=== PATIENT | female | born 1975 | race African-American/Black ===

== ENCOUNTER 2017-11-29 05:00 | Emergency (ER) | payer OTHER ==
[2017-11-29 05:21] LABS: Urine Blood NEGATIVE (NEG); Urine Glucose NEGATIVE (NEG); Urine Protein NEGATIVE (NEG); Urine Specific Gravity 1.025 (1.005-1.030)
[2017-11-29 05:57] LABS: Absolute Lymphocytes (CBC) 2.6 K/uL (0.7-4.9); Absolute Monocytes 0.6 K/uL (0.1-1.3); Absolute Neutrophil 7.3 K/uL (1.8-8.0); Albumin 3.3 g/dL (3.4-5.0); Basophils % 0.3 % (0-1.3); Bilirubin Direct 0.1 mg/dL (0-0.2); Bilirubin Total 0.3 mg/dL (0.2-1.0); Eosinophils % 0.8 % (0-4.4); Hematocrit 31.5 % (36.0-45.0); Lymphocytes % 24.5 % (15.3-44.8); MCH 27.7 pg (27.0-35.0); MCV 80.8 fL (80-100); MPV 8.1 fL (7.6-11.3); Monocytes % 5.6 % (3.3-12.3); Potassium 3.7 mmol/L (3.5-5.1); Protein, Total 7.8 g/dL (6.4-8.2)
--- NOTE | 2017-11-29 06:55 | ER ---
Nurse's Notes [facility] Name: Vicky Klein Age: 42 yrs Sex: Female : 1975 Arrival Date: 11/29/2017 Time: 05:03 Bed 13 Private MD: Telma Wall Diagnosis: Calculus of kidney and ureter Presentation: 11/29 05:21 Presenting complaint: Patient states: R flank pain x 3 days. Denies N/V or urinary aa1 symptoms. Reports normal u/a yesterday. States her PCP believes it could be related to stress or a new weight loss medication she has been taking. Transition of care: patient was not received from another setting of care. Onset of symptoms was November 27, 2017. Risk Assessment: Do you want to hurt yourself or someone else? Patient reports no desire to harm self or others. Initial Sepsis Screen: Does the patient meet any 2 criteria? HR > 90 bpm. Does the patient have a suspected source of infection? No. Patient's initial sepsis screen is negative. Care prior to arrival: None. 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 - Social history:: Smoking status: Patient/guardian denies using tobacco. - Ebola Screening: : No symptoms or risks identified at this time. Screenin:28 Abuse screen: Denies threats or abuse. Denies injuries from another. Nutritional aa1 screening: No deficits noted. Tuberculosis screening: No symptoms or risk factors identified. Fall Risk None identified. Assessment: 05:28 General: Appears in no apparent distress. comfortable, Behavior is calm, cooperative, aa1 appropriate for age. Pain: Complains of pain in posterior aspect of right lateral abdomen and anterior aspect of right lateral abdomen Pain currently is 5 out of 10 on a pain scale. Pain began 2-3 days ago. Neuro: Level of Consciousness is awake, alert, obeys commands, Oriented to person, place, time, situation, Moves all extremities. Full function Gait is steady. Cardiovascular: Denies chest pain, palpitations. Respiratory: Airway is patent Respiratory effort is even, unlabored, Respiratory pattern is regular, symmetrical. GI: Abdomen is non-distended, Abd is soft and non tender X 4 quads. Patient currently denies constipation, diarrhea, nausea, vomiting. : Reports pain in right flank(s), Denies burning with urination, pain with urination urinary frequency. EENT: No signs and/or symptoms were reported regarding the EENT system. Derm: Skin is intact, is healthy with good turgor, Skin is pink, warm \T\ dry. Musculoskeletal: Circulation, motion, and sensation intact. Capillary refill < 3 seconds. 06:16 Reassessment: Patient appears in no apparent distress at this time. Patient and/or aa1 family updated on plan of care and expected duration. Pain level reassessed. Patient is alert, oriented x 3, equal unlabored respirations, skin warm/dry/pink. Awaiting lab \T\ CT results. 07:07 Reassessment: Patient appears in no apparent distress at this time. Patient is alert, aa1 oriented x 3, equal unlabored respirations, skin warm/dry/pink. Discussed d/c \T\ f/u instructions with pt; denies questions or concerns at this time Patient states feeling better. Vital Signs: 05:23 BP 133 / 81; Pulse 113; Resp 18; Temp 98.7; Pulse Ox 100% on R/A; Weight 95.71 kg; aa1 Height 5 ft. 7 in. (170.18 cm); Pain 5/10; 06:16 BP 123 / 75; Pulse 86; Resp 16; Pulse Ox 95% on R/A; aa1 05:23 Body Mass Index 33.05 (95.71 kg, 170.18 cm) aa1 ED Course: 05:03 Patient arrived in ED. am2 05:03 Telma Wall MD is Private Physician. am2 05:09 Missy Martin, RAVEN is Primary Nurse. aa1 05:10 Hilario Lee MD is Attending Physician. gs 05:23 Triage completed. aa1 05:23 Arm band placed on right wrist. Patient placed in an exam room, on a stretcher. aa1 05:28 Patient has correct armband on for positive identification. Placed in gown. Bed in low aa1 position. Call light in reach. Pulse ox on. NIBP on. 05:28 Urine collected: clean catch specimen. aa1 05:34 Inserted saline lock: 20 gauge in right antecubital area, using aseptic technique. ao Blood collected. 05:36 Patient moved to [place] via wheelchair. kw1 05:45 CT Stone Protocol In Process Unspecified. EDMS 05:47 CT completed. Patient tolerated procedure well. Patient moved back from [place]. kw1 06:54 Rocky Ivey MD is Referral Physician. gs 07:07 No provider procedures requiring assistance completed. IV discontinued, intact, aa1 bleeding controlled, No redness/swelling at site. Pressure dressing applied. Administered Medications: No medications were administered Outcome: 06:54 Discharge ordered by . gs 07:07 Discharged to home ambulatory. aa1 07:07 Condition: good 07:07 Discharge instructions given to patient, Instructed on discharge instructions, follow up and referral plans. medication usage, Demonstrated understanding of instructions, follow-up care, medications. 07:08 Patient left the ED. aa1 Signatures: Dispatcher [employer] EDMS Missy Martin RN RN aa1 Hilton Aguero RN RN Lizabeth Villalobos am2 Hilario Lee MD MD Rashida Palma kw1
--- NOTE | 2017-11-29 06:55 | EDPHYS ---
Physician Documentation [facility] Name: Vicky Klein Age: 42 yrs Sex: Female : 1975 Arrival Date: 11/29/2017 Time: 05:03 Bed 13 Private MD: Telma Wall ED Physician Hilario Lee HPI: 11/29 06:15 This 42 yrs old Black Female presents to ER via Ambulatory with complaints of Flank gs Pain. 06:15 The patient complains of pain in the right mid back and right low back. The pain gs radiates to the right lower quadrant. Onset: The symptoms/episode began/occurred acutely, 3 day(s) ago, and became persistent. Modifying factors: The symptoms are alleviated by nothing. the symptoms are aggravated by nothing. Associated signs and symptoms: Pertinent negatives: diarrhea, dizziness, dysuria, fever, urinary frequency, headache, hematuria, nausea, pain radiating to the lower extremities, vomiting. Severity of pain: At its worst the pain was moderate in the emergency department the pain has improved markedly. The patient has experienced similar episodes in the past, a few times. The patient has been recently seen by a physician: the patient's primary care provider. 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 - Social history:: Smoking status: Patient/guardian denies using tobacco. - Ebola Screening: : No symptoms or risks identified at this time. ROS: 06:15 All other systems are negative. gs Exam: 06:15 Head/Face: Normocephalic, atraumatic. Eyes: Pupils equal round and reactive to light, gs extra-ocular motions intact. Lids and lashes normal. Conjunctiva and sclera are non-icteric and not injected. Cornea within normal limits. Periorbital areas with no swelling, redness, or edema. ENT: Nares patent. No nasal discharge, no septal abnormalities noted. Tympanic membranes are normal and external auditory canals are clear. Oropharynx with no redness, swelling, or masses, exudates, or evidence of obstruction, uvula midline. Mucous membranes moist. Neck: Trachea midline, no thyromegaly or masses palpated, and no cervical lymphadenopathy. Supple, full range of motion without nuchal rigidity, or vertebral point tenderness. No Meningismus. Chest/axilla: Normal chest wall appearance and motion. Nontender with no deformity. No lesions are appreciated. Cardiovascular: Regular rate and rhythm with a normal S1 and S2. No gallops, murmurs, or rubs. Normal PMI, no JVD. No pulse deficits. Respiratory: Lungs have equal breath sounds bilaterally, clear to auscultation and percussion. No rales, rhonchi or wheezes noted. No increased work of breathing, no retractions or nasal flaring. Abdomen/GI: Soft, non-tender, with normal bowel sounds. No distension or tympany. No guarding or rebound. No evidence of tenderness throughout. Back: No spinal tenderness. No costovertebral tenderness. Full range of motion. Skin: Warm, dry with normal turgor. Normal color with no rashes, no lesions, and no evidence of cellulitis. MS/ Extremity: Pulses equal, no cyanosis. Neurovascular intact. Full, normal range of motion. Neuro: Awake and alert, GCS 15, oriented to person, place, time, and situation. Cranial nerves II-XII grossly intact. Motor strength 5/5 in all extremities. Sensory grossly intact. Cerebellar exam normal. Normal gait. 06:15 Constitutional: The patient appears alert, awake. Vital Signs: 05:23 BP 133 / 81; Pulse 113; Resp 18; Temp 98.7; Pulse Ox 100% on R/A; Weight 95.71 kg; aa1 Height 5 ft. 7 in. (170.18 cm); Pain 5/10; 06:16 BP 123 / 75; Pulse 86; Resp 16; Pulse Ox 95% on R/A; aa1 05:23 Body Mass Index 33.05 (95.71 kg, 170.18 cm) aa1 MDM: 05:18 Patient medically screened. 06:15 Differential diagnosis: nephrolithiasis, UTI, pancreatitis. Data reviewed: vital signs, gs nurses notes. Counseling: I had a detailed discussion with the patient and/or guardian regarding: the historical points, exam findings, and any diagnostic results supporting the discharge/admit diagnosis, lab results, radiology results. Response to treatment: the patient's symptoms have markedly improved after treatment, and as a result, I will discharge patient. 11/29 05:18 Order name: Urine Dipstick--Ancillary (enter results); Complete Time: 06:14 ms 11/29 05:18 Order name: Urine --Ancillary (enter results); Complete Time: 06:14 ms 11/29 05:18 Order name: Basic Metabolic Panel; Complete Time: 06:14 11/29 05:18 Order name: CBC with Diff; Complete Time: 06:14 11/29 05:18 Order name: Hepatic Function; Complete Time: 06:14 11/29 05:18 Order name: Lipase; Complete Time: 06: 11/29 05:18 Order name: IV Saline Lock; Complete Time: :34 11/29 05:18 Order name: Labs collected and sent; Complete Time: 05:34 11/29 05:18 Order name: Urine Dipstick-Ancillary (obtain specimen); Complete Time: : 11/29 05:18 Order name: CT Stone Protocol Administered Medications: No medications were administered Disposition: 11/29/17 06:54 Discharged to Home. Impression: Calculus of kidney and ureter. - Condition is Stable. - Discharge Instructions: Kidney Stones. - Medication Reconciliation Form, Thank You Letter, Antibiotic Education, Prescription Opioid Use form. - Follow up: Rocky Ivey; When: 2 - 3 days; Reason: Re-evaluation by your physician. Signatures: Dispatcher [facility] CenterMissy Bingham RN RN aa1 Hilario Lee MD MD Corrections: (The following items were deleted from the chart) 07:08 06:54 11/29/2017 06:54 Discharged to Home. Impression: Calculus of kidney and ureter. aa1 Condition is Stable. Discharge Instructions: Kidney Stones. Forms are Medication Reconciliation Form, Thank You Letter, Antibiotic Education, Prescription Opioid Use. Follow up: Rocky Ivey; When: 2 - 3 days; Reason: Re-evaluation by your physician. gs
--- NOTE | 2017-11-29 08:52 | RAD REPORT ---
EXAM DESCRIPTION: CT - Stone Protocol - 11/29/2017 7:15 am CLINICAL HISTORY: Abdominal pain. Right flank pain for 3 days COMPARISON: 2014 TECHNIQUE: Computed axial tomography of the abdomen pelvis was obtained without oral or IV contrast. Lack of IV and oral contrast limits evaluation of solid organs, bowel, and vessels. Coronal reformat radha images were obtained and reviewed. Preliminary report was generated by virtual radiologic in review prior to this dictation All CT scans are performed using dose optimization technique as appropriate and may include automated exposure control or mA/KV adjustment according to patient size. FINDINGS: A 3 millimeter right renal calculus is seen. Hydronephrosis is not noted. An ureteral calc ulus is not noted. A bladder calculus is not present. The liver, spleen, pancreas and adrenals appear grossly normal There is no evidence of diverticulitis. The appendix appears normal Small ovarian cysts are present without significant free-fluid A tiny umbilical hernia is present IMPRESSION: Small nonobstructing right renal calculus
== END 2017-11-29 07:08 | disposition home or self-care (01) ==
LOC: ER 05:00
DX: N20.2 Calculus of kidney with calculus of ureter (principal)
CPT/HCPCS: 36415; 74176; 76377; 80048; 80076; 81003; 81025; 83690; 85025; 99284

== ENCOUNTER 2019-08-12 08:14 | Emergency (ER) | payer OTHER ==
[2019-08-12] MEDS ORDERED: NA CHLORIDE 0.9% 500 ML ONE (09:29)
[2019-08-12] MEDS ORDERED: MORPHINE 4 MG/ML SYR ONE ×2 (09:29→11:35)
[2019-08-12] MEDS ORDERED: ONDANSETRON 4 MG/2 ML VIAL ONE ×2 (09:29→11:35)
[2019-08-12] MEDS ORDERED: FAMOTIDINE 20 MG/2 ML VIAL IV ONE (09:29)
[2019-08-12 09:41] LABS: Basophils % 0.4 % (0-1.3); Hematocrit 35.8 % (36.0-45.0); Lymphocytes % 16.6 % (15.3-44.8); MPV 7.7 fL (7.6-11.3); RBC Red Blood Cell Count 4.46 M/uL (3.86-4.86)
[2019-08-12 09:56] LABS: ALT/SGPT 12 U/L (12-78); AST/SGOT 7 U/L (15-37); Albumin 3.2 g/dL (3.4-5.0); Alkaline Phosphatase 60 U/L (45-117); BUN Blood Urea Nitrogen 14 mg/dL (7-18); Bicarbonate 26 mmol/L (21-32); Bilirubin Direct < 0.1 mg/dL (0-0.2); Bilirubin Total 0.3 mg/dL (0.2-1.0); Glucose Level 128 mg/dL (74-106); Lipase 88 U/L (73-393); Potassium 4.3 mmol/L (3.5-5.1); Protein, Total 7.6 g/dL (6.4-8.2); Sodium Level 136 mmol/L (136-145)
--- NOTE | 2019-08-12 10:23 | RAD REPORT ---
EXAM DESCRIPTION: CT - Abdomen Pelvis W Contrast - 08/12/2019 9:53 am CLINICAL HISTORY: Abdominal pain COMPARISON: 2017 TECHNIQUE: Computed axial tomography of the abdomen pelvis was obtained. 100 cc Isovue-300 was admin istered intravenously. Oral contrast was not requested which limits evaluation of bowel. All CT scans are performed using dose optimization technique as appropriate and may include automated exposure control or mA/KV adjustment according to patient size. FINDINGS: A 3 millimeter calculus right kidney. No hydronephrosis. Small renal cysts. The liver, spleen, pancreas and adrenals are unremarkable There is no evidence of diverticulitis. Normal appendix. Tubal ligation clips Small amount of ascites within the abdomen. Small to moderate amount of ascites within the pelvis . 24 millimeter dense structure abuts the right aspect of the uterus The wall of several loops of jejunum are thickened IMPRESSION: A 24 millimeter dense structure abuts the right aspect of the uterus. This may represent a hemorrhagic ovarian cyst or fibroid. Small to moderate amount of ascites within the pelvis. Thickening of the wall of several loops of jejunum could indicate inflammation or infection
[2019-08-12] MEDS ORDERED: CIPROFLOXACIN HCL 500 MG TAB ONE (11:34)
[2019-08-12] MEDS ORDERED: metroNIDAZOLE 500 MG TABLET ONE (11:34)
--- NOTE | 2019-08-12 15:10 | RAD REPORT ---
EXAM DESCRIPTION: RAD - Small Bowel Series - 08/12/2019 2:38 pm CLINICAL HISTORY: abd pain COMPARISON: Abdomen Pelvis W Contrast dated 08/12/2019 FINDINGS: Dependency Director film shows a nonspecific bowel gas pattern. No obstruction or free air. No suspiciou s calcifications. Contrast is present in the system from earlier CT study. Gastric size and mucosal fold pattern are normal. No delay in transit of contrast into the small mikey l. The mid and distal portions of the jejunum show mucosal thickening and edema. This circumferential process matches the finding on the CT study. This is most likely an infectious/ inflammatory small b owel process. No involvement of the duodenum or ileum. No delay in transit of contrast. The terminal ileum is normal in appearance. No intrinsic or extrinsic mass identifiable. Transit time to the colon is 2 hours. IMPRESSION: Circumferential mucosal thickening/ edema pattern involving the mid and distal jejunum. This matches the CT finding. Infectious/ inflammatory process most likely. No obstruction or transit delay. Contrast reached the colon at 2 hours.
[2019-08-12 15:39] VITALS: BP 126/78; TEMP 97.9; O2SAT 99
--- NOTE | 2019-08-16 15:51 | EDPHYS ---
Physician Documentation [facility] Name: Vicky Klein Age: 44 yrs Sex: Female : 1975 Arrival Date: 08/12/2019 Time: 08:16 Bed 2 Private MD: Telma Wall ED Physician Ladarius Rider HPI: 08/11 09:13 This 44 yrs old Black Female presents to ER via Ambulatory with complaints of Abdominal kdr Cramping. 09:13 The patient presents with abdominal pain in the epigastric area, in the upper abdomen. kdr Onset: The symptoms/episode began/occurred gradually, 3 day(s) ago. The symptoms do not radiate. The symptoms are described as achy, crampy, intermittent, vague, waxing/waning. Modifying factors: The symptoms are alleviated by nothing, the symptoms are aggravated by food, movement, touching the area. Severity of pain: At its worst the pain was moderate in the emergency department the pain has improved mildly. The patient has experienced similar episodes in the past, a few times, has hx of IBS. The patient has not recently seen a physician. 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 - Social history:: Smoking status: Patient denies any tobacco usage or history of. ROS: 09:13 Constitutional: Negative for fever, chills, and weight loss, Eyes: Negative for injury, kdr pain, redness, and discharge, ENT: Negative for injury, pain, and discharge, Neck: Negative for injury, pain, and swelling, Cardiovascular: Negative for chest pain, palpitations, and edema, Respiratory: Negative for shortness of breath, cough, wheezing, and pleuritic chest pain, Back: Negative for injury and pain, : Negative for injury, bleeding, discharge, and swelling, MS/Extremity: Negative for injury and deformity, Skin: Negative for injury, rash, and discoloration, Neuro: Negative for headache, weakness, numbness, tingling, and seizure activity. Psych: Negative for depression, anxiety, suicide ideation, homicidal ideation, and hallucinations, Allergy/Immunology: Negative for hives, rash, and allergies, Endocrine: Negative for neck swelling, polydipsia, polyuria, polyphagia, and marked weight changes, Hematologic/Lymphatic: Negative for swollen nodes, abnormal bleeding, and unusual bruising. 09:13 Abdomen/GI: Positive for abdominal pain, nausea, Negative for constipation, abdominal distension, anorexia, dysphagia, hematemesis, black/tarry stool, rectal pain, rectal bleeding, bowel incontinence. Exam: 09:13 Constitutional: This is a well developed, well nourished patient who is awake, alert, kdr and in no acute distress. Head/Face: Normocephalic, atraumatic. Eyes: Pupils equal round and reactive to light, extra-ocular motions intact. Lids and lashes normal. Conjunctiva and sclera are non-icteric and not injected. Cornea within normal limits. Periorbital areas with no swelling, redness, or edema. Neck: Trachea midline, no thyromegaly or masses palpated, and no cervical lymphadenopathy. Supple, full range of motion without nuchal rigidity, or vertebral point tenderness. No Meningismus. Chest/axilla: Normal chest wall appearance and motion. Nontender with no deformity. No lesions are appreciated. Cardiovascular: Regular rate and rhythm with a normal S1 and S2. No gallops, murmurs, or rubs. Normal PMI, no JVD. No pulse deficits. Respiratory: Lungs have equal breath sounds bilaterally, clear to auscultation and percussion. No rales, rhonchi or wheezes noted. No increased work of breathing, no retractions or nasal flaring. Back: No spinal tenderness. No costovertebral tenderness. Full range of motion. Skin: Warm, dry with normal turgor. Normal color with no rashes, no lesions, and no evidence of cellulitis. MS/ Extremity: Pulses equal, no cyanosis. Neurovascular intact. Full, normal range of motion. Neuro: Awake and alert, GCS 15, oriented to person, place, time, and situation. Cranial nerves II-XII grossly intact. Motor strength 5/5 in all extremities. Sensory grossly intact. Cerebellar exam normal. Normal gait. Psych: Awake, alert, with orientation to person, place and time. Behavior, mood, and affect are within normal limits. 09:13 Abdomen/GI: Inspection: abdomen appears normal, obese Bowel sounds: diminished, in all quadrants, Palpation: soft, mild abdominal tenderness, in the epigastric area, right upper quadrant and left upper quadrant. Vital Signs: 08:38 BP 134 / 94; Pulse 112; Resp 16; Temp 98.2; Pulse Ox 96% ; Weight 93.89 kg; Height 5 hb ft. 7 in. (170.18 cm); Pain 8/10; 08:47 BP 128 / 91; Pulse 96; Pulse Ox 96% ; sv 10:53 BP 120 / 71; Pulse 79; Resp 16; Pulse Ox 96% ; sv 11:39 BP 115 / 80; Pulse 93; Resp 16; Pulse Ox 98% ; sv 12:00 BP 124 / 79; Pulse 86; Resp 16; Pulse Ox 96% ; sv 15:00 BP 126 / 78; Pulse 84; Resp 16; Temp 97.9; Pulse Ox 99% ; hb 08:38 Body Mass Index 32.42 (93.89 kg, 170.18 cm) hb MDM: 09:13 Data reviewed: vital signs, nurses notes, lab test result(s), radiologic studies. kdr Counseling: I had a detailed discussion with the patient and/or guardian regarding: the historical points, exam findings, and any diagnostic results supporting the discharge/admit diagnosis, lab results, radiology results. 10:47 Physician consultation: Brandan Vines MD was called at 10:48, regarding consult, kdr patient's condition, outpatient follow-up. 14:44 Patient medically screened. [facility] 08/11 09:12 Order name: Basic Metabolic Panel; Complete Time: 10:37 [facility] 08/11 09:12 Order name: CBC with Diff; Complete Time: 09:55 [facility] 08/11 09:12 Order name: Hepatic Function; Complete Time: 10:37 [facility] 08/11 09:12 Order name: Lipase; Complete Time: 10:37 [facility] 08/11 09:12 Order name: CT Abd/Pelvis - IV Contrast Only; Complete Time: 10:37 [facility] 08/11 09:52 Order name: CREATININE WHOLE BLOOD; Complete Time: 09:55 [facility] 08/11 11:37 Order name: Small Bowel Series [facility] 08/11 09:12 Order name: IV Saline Lock; Complete Time: 09:37 [facility] 08/11 09:12 Order name: Labs collected and sent; Complete Time: 09:37 kdr Administered Medications: 09:30 Drug: NS 0.9% 500 ml Route: IV; Rate: bolus; Site: left antecubital; sv 10:00 Follow up: Response: No adverse reaction; IV Status: Completed infusion; IV Intake: sv 500ml 09:30 Drug: Zofran (Ondansetron) 4 mg Route: IVP; Site: left antecubital; sv 10:00 Follow up: Response: No adverse reaction sv 09:32 Drug: Pepcid 20 mg Route: IVP; Site: left antecubital; sv 10:00 Follow up: Response: No adverse reaction sv 09:34 Drug: morphine 4 mg {Note: rass1.} Route: IVP; Site: left antecubital; sv 10:00 Follow up: Response: No adverse reaction; RASS: Alert and Calm (0) sv 11:32 Drug: Zofran (Ondansetron) 4 mg Route: IVP; Site: left antecubital; em 12:00 Follow up: Response: No adverse reaction sv 11:34 Drug: Cipro 500 mg Route: PO; em 12:00 Follow up: Response: No adverse reaction sv 11:34 Drug: Flagyl 500 mg Route: PO; em 12:00 Follow up: Response: No adverse reaction sv 11:34 Drug: morphine 4 mg Route: IVP; Site: left antecubital; em 12:00 Follow up: Response: No adverse reaction sv Disposition: 08/12/19 14:44 Discharged to Home. Impression: Abdominal and pelvic pain, Enteritis. - Condition is Stable. - Discharge Instructions: Abdominal Pain, Adult, [id number]. - Prescriptions for Bentyl 20 mg Oral Tablet - take 1 tablet by ORAL route every 6 hours As needed; 20 tablet. Cipro 500 mg Oral Tablet - take 1 tablet by ORAL route every 12 hours for 10 days; 20 tablet. Flagyl 500 mg Oral Tablet - take 1 tablet by ORAL route every 6 hours for 10 days; 40 tablet. Pepcid 20 mg Oral Tablet - take 1 tablet by ORAL route every 12 hours for 5 days; 10 tablet. Tramadol 50 mg Oral Tablet - take 1 tablet by ORAL route every 8 hours as needed; 12 tablet. - Medication Reconciliation Form, Thank You Letter, Antibiotic Education, Prescription Opioid Use form. - Follow up: Telma Wall MD; When: 2 - 3 days; Reason: If symptoms return, Further diagnostic work-up, Recheck today's complaints, Continuance of care, Re-evaluation by your physician. Follow up: Brandan Vines MD; When: 2 - 3 days; Reason: If symptoms return, Further diagnostic work-up, Recheck today's complaints, Continuance of care, Re-evaluation by your physician. - Problem is an acute exacerbation. - Symptoms have improved. Signatures: Dispatcher [employer] Yuridia Tejada, RN RN Ladarius Rider MD MD [facility] Luis Felipe Perez RN RN em Roshni Manjarrez RN RN Frances Encinas RN RN ll1 Corrections: (The following items were deleted from the chart) 15:12 14:44 08/12/2019 14:44 Discharged to Home. Impression: Abdominal and pelvic pain; ll1 Enteritis. Condition is Stable. Forms are Medication Reconciliation Form, Thank You Letter, Antibiotic Education, Prescription Opioid Use. Follow up: Telma Wall; When: 2 - 3 days; Reason: If symptoms return, Further diagnostic work-up, Recheck today's complaints, Continuance of care, Re-evaluation by your physician. Follow up: Brandan Vines; When: 2 - 3 days; Reason: If symptoms return, Further diagnostic work-up, Recheck today's complaints, Continuance of care, Re-evaluation by your physician. Problem is an acute exacerbation. Symptoms have improved. kdr
--- NOTE | 2019-08-16 15:51 | ER ---
Nurse's Notes [facility] Name: Vicky Klein Age: 44 yrs Sex: Female : 1975 Arrival Date: 08/12/2019 Time: 08:16 Bed 2 Private MD: Telma Wall Diagnosis: Abdominal and pelvic pain;Enteritis Presentation: 08/11 08:38 Chief complaint: Left flank pain 3-4 days ago that has now moved to upper abdomen. Also hb c/o nausea. Denies urinary s/s or fever. Started on omeprazole and sucralfate by Dr. Wall yesterday. Coronavirus screen: Proceed with normal triage. Ebola Screen: No symptoms or risks identified at this time. Initial Sepsis Screen: Does the patient meet any 2 criteria? No. Patient's initial sepsis screen is negative. Does the patient have a suspected source of infection? No. Patient's initial sepsis screen is negative. Risk Assessment: Do you want to hurt yourself or someone else? Patient reports no desire to harm self or others. Onset of symptoms was August 08, 2019. 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 - Social history:: Smoking status: Patient denies any tobacco usage or history of. Screenin:25 Abuse screen: Denies threats or abuse. Denies injuries from another. Nutritional sv screening: No deficits noted. Tuberculosis screening: No symptoms or risk factors identified. Fall Risk None identified. Assessment: 09:25 General: Appears in no apparent distress. uncomfortable, well groomed, well developed, sv Behavior is calm, cooperative, appropriate for age. Pain: Complains of pain in epigastric area, posterior aspect of left lateral abdomen, right upper quadrant and left upper quadrant Pain currently is 8 out of 10 on a pain scale. Quality of pain is described as crampy, Pain began 1 day ago. Is continuous. Neuro: Level of Consciousness is awake, alert, obeys commands, Oriented to person, place, time, situation, Gait is steady, Speech is normal. Respiratory: Airway is patent Respiratory effort is even, unlabored, Respiratory pattern is regular, symmetrical. GI: Abdomen is flat, Abd is soft X 4 quads Abdomen is tender to palpation in epigastric area, right upper quadrant and left upper quadrant Reports upper abdominal pain. Derm: Skin is intact, Skin is pink, warm \T\ dry. 10:03 Reassessment: Patient appears in no apparent distress at this time. No changes from sv previously documented assessment. Patient and/or family updated on plan of care and expected duration. Pain level reassessed. Patient is alert, oriented x 3, equal unlabored respirations, skin warm/dry/pink. 12:45 Reassessment: Pt gone for small bowel series. sv 15:00 Reassessment: Patient appears in no apparent distress at this time. Patient and/or hb family updated on plan of care and expected duration. Pain level reassessed. Patient is alert, oriented x 3, equal unlabored respirations, skin warm/dry/pink. Vital Signs: 08:38 BP 134 / 94; Pulse 112; Resp 16; Temp 98.2; Pulse Ox 96% ; Weight 93.89 kg; Height 5 hb ft. 7 in. (170.18 cm); Pain 8/10; 08:47 BP 128 / 91; Pulse 96; Pulse Ox 96% ; sv 10:53 BP 120 / 71; Pulse 79; Resp 16; Pulse Ox 96% ; sv 11:39 BP 115 / 80; Pulse 93; Resp 16; Pulse Ox 98% ; sv 12:00 BP 124 / 79; Pulse 86; Resp 16; Pulse Ox 96% ; sv 15:00 BP 126 / 78; Pulse 84; Resp 16; Temp 97.9; Pulse Ox 99% ; hb 08:38 Body Mass Index 32.42 (93.89 kg, 170.18 cm) hb ED Course: 08:16 Patient arrived in ED. mr 08:16 Telma Wall MD is Private Physician. mr 08:40 Triage completed. hb 08:40 Arm band placed on. hb 08:46 Yuridia Retana RN is Primary Nurse. sv 08:47 Ladarius Rider MD is Attending Physician. kdr 09:25 Patient has correct armband on for positive identification. Placed in gown. Bed in low sv position. Call light in reach. Pulse ox on. NIBP on. Door closed. Head of bed elevated. 09:30 Inserted saline lock: 20 gauge in left antecubital area, using aseptic technique. Blood sv collected. Flushed left antecubital with 5 ml normal saline. 09:[address] via wheelchair. sv 09:53 CT Abd/Pelvis - IV Contrast Only In Process Unspecified. EDMS 11:39 Awaiting for x-ray. sv 14:39 Small Bowel Series In Process Unspecified. EDMS 14:43 Telma Wall MD is Referral Physician. kdr 14:43 Brandan Vines MD is Referral Physician. kdr 15:03 No provider procedures requiring assistance completed. IV discontinued, intact, hb bleeding controlled, No redness/swelling at site. Administered Medications: 09:30 Drug: NS 0.9% 500 ml Route: IV; Rate: bolus; Site: left antecubital; sv 10:00 Follow up: Response: No adverse reaction; IV Status: Completed infusion; IV Intake: sv 500ml 09:30 Drug: Zofran (Ondansetron) 4 mg Route: IVP; Site: left antecubital; sv 10:00 Follow up: Response: No adverse reaction sv 09:32 Drug: Pepcid 20 mg Route: IVP; Site: left antecubital; sv 10:00 Follow up: Response: No adverse reaction sv 09:34 Drug: morphine 4 mg {Note: rass1.} Route: IVP; Site: left antecubital; sv 10:00 Follow up: Response: No adverse reaction; RASS: Alert and Calm (0) sv 11:32 Drug: Zofran (Ondansetron) 4 mg Route: IVP; Site: left antecubital; em 12:00 Follow up: Response: No adverse reaction sv 11:34 Drug: Cipro 500 mg Route: PO; em 12:00 Follow up: Response: No adverse reaction sv 11:34 Drug: Flagyl 500 mg Route: PO; em 12:00 Follow up: Response: No adverse reaction sv 11:34 Drug: morphine 4 mg Route: IVP; Site: left antecubital; em 12:00 Follow up: Response: No adverse reaction sv Intake: 10:00 IV: 500ml; Total: 500ml. sv Outcome: 14:44 Discharge ordered by . abdullahi 15:03 Discharged to home ambulatory. hb 15:03 Condition: stable 15:03 Discharge instructions given to patient, Instructed on discharge instructions, follow up and referral plans. medication usage. 15:12 Patient left the ED. ll1 Signatures: Dispatcher [employer] Yuridia Tejada RN RN sv Rittger, Kevin, MD MD kdr Rivera, Mary mr Luis Felipe Perez RN RN em Baxter, Heather, RN RN hb Lewis, Lynsay, RN RN ll1
== END 2019-08-12 15:12 | disposition home or self-care (01) ==
LOC: ER 08:14
DX: K52.9 Noninfective gastroenteritis and colitis, unspecified (principal)
CPT/HCPCS: 85025; 80048; 36415; 82565; 80076; 83690; 74177; 74250; 96375; 96374; 99284; Q9967; J7040; J2405 ×2

== ENCOUNTER 2020-12-26 10:43 | Emergency (ER) | payer OTHER ==
[2020-12-26] MEDS ORDERED: METOCLOPRAMIDE 10 MG/2mL INJ ONE (11:28)
[2020-12-26] MEDS ORDERED: NA CHLORIDE 0.9% 1,000 ML ONE (11:28)
[2020-12-26] MEDS ORDERED: DIPHENHYDRAMINE 50 MG/ML VIAL ONE (11:28)
[2020-12-26 11:38] LABS: Absolute Lymphocytes (CBC) 2.8 K/uL (0.7-4.9); Basophils % 0.4 % (0-1.3); Hematocrit 33.8 % (36.0-45.0); Lymphocytes % 21.8 % (15.3-44.8); MPV 7.4 fL (7.6-11.3); RBC Red Blood Cell Count 4.04 M/uL (3.86-4.86)
[2020-12-26 12:06] LABS: ALT/SGPT 26 U/L (12-78); AST/SGOT 10 U/L (15-37); Albumin 3.6 g/dL (3.4-5.0); Alkaline Phosphatase 73 U/L (45-117); BUN Blood Urea Nitrogen 15 mg/dL (7-18); Bicarbonate 22 mmol/L (21-32); Bilirubin Direct < 0.1 mg/dL (0-0.2); Bilirubin Total 0.3 mg/dL (0.2-1.0); Glucose Level 92 mg/dL (74-106); Lipase 87 U/L (73-393); Potassium 3.8 mmol/L (3.5-5.1); Protein, Total 7.8 g/dL (6.4-8.2); Sodium Level 138 mmol/L (136-145)
--- NOTE | 2020-12-26 14:17 | EDPHYS ---
Physician Documentation [facility] Name: Vicky Klein Age: 45 yrs Sex: Female : 1975 Arrival Date: 12/26/2020 Time: 10:46 Bed 11 Private MD: Telma Wall ED Physician Ladarius Rider HPI: 12/26 10:51 This 45 yrs old Black Female presents to ER via Ambulatory with complaints of Abdominal jmm Pain. 10:51 The patient presents with abdominal pain. Onset: The symptoms/episode began/occurred jmm gradually, 2 day(s) ago. The symptoms do not radiate. Associated signs and symptoms: Pertinent positives: nausea. The symptoms are described as achy. Modifying factors: The symptoms are alleviated by nothing, the symptoms are aggravated by food. Patient states that symptoms began after eating this past Friday.. 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 - Social history:: Smoking status: Patient denies any tobacco usage or history of. ROS: 10:51 Constitutional: Negative for fever, chills, and weight loss, Cardiovascular: Negative jmm for chest pain, palpitations, and edema, Respiratory: Negative for shortness of breath, cough, wheezing, and pleuritic chest pain. 10:51 Abdomen/GI: Positive for abdominal pain. 10:51 All other systems are negative. Exam: 10:51 Constitutional: This is a well developed, well nourished patient who is awake, alert, jmm and in no acute distress. Head/Face: atraumatic. Eyes: EOMI, no conjunctival erythema appreciated ENT: Moist Mucus Membranes Neck: Trachea midline, Supple Chest/axilla: Normal chest wall appearance and motion. Cardiovascular: Regular rate and rhythm. No edema appreciated Respiratory: Normal respirations, no respiratory distress appreciated 10:51 Back: Normal ROM Skin: General appearance color normal MS/ Extremity: Moves all extremities, no obvious deformities appreciated, no edema noted to the lower extremities Neuro: Awake and alert, normal gait Psych: Behavior is normal, Mood is normal, Patient is cooperative and pleasant 10:51 Abdomen/GI: Inspection: abdomen appears normal, Bowel sounds: normal, Palpation: soft, mild abdominal tenderness, in all quadrants. Vital Signs: 10:51 BP 142 / 88; Pulse 107; Resp 14; Temp 98.6(O); Pulse Ox 99% on R/A; Weight 88.9 kg; tw5 Height 5 ft. 7 in. (170.18 cm); Pain 3/10; 11:20 BP 124 / 83; Pulse 101; Resp 12; Pulse Ox 96% on R/A; Pain 3/10; tw5 12:21 BP 109 / 69; Pulse 92; Resp 14; Pulse Ox 99% on R/A; Pain 3/10; tw5 13:18 BP 112 / 68; Pulse 93; Resp 14; Pulse Ox 96% on R/A; Pain 3/10; tw5 14:23 BP 120 / 76; Pulse 92; Resp 14; Temp 98.1; Pulse Ox 96% on R/A; Pain 0/10; tw5 10:51 Body Mass Index 30.70 (88.90 kg, 170.18 cm) tw5 MDM: 10:51 Patient medically screened. [facility] 14:15 Data reviewed: vital signs, nurses notes. Counseling: I had a detailed discussion with onel the patient and/or guardian regarding: the historical points, exam findings, and any diagnostic results supporting the discharge/admit diagnosis, lab results, radiology results, the need for outpatient follow up, to return to the emergency department if symptoms worsen or persist or if there are any questions or concerns that arise at home. ED course: Patient and nontoxic in appearance in the ED. Patient states feeling much better. Patient will follow up with Dr. Aranda for reevaluation otherwise given strict return precautions. Patient understood agrees plan of care.. 12/26 10:52 Order name: Basic Metabolic Panel; Complete Time: 12:19 [facility] 12/26 10:52 Order name: CBC with Diff; Complete Time: 11:50 [facility] 12/26 10:52 Order name: Hepatic Function; Complete Time: 12:19 [facility] 12/26 10:52 Order name: Lipase; Complete Time: 12:19 [facility] 12/26 12:21 Order name: CT Abd/Pelvis - IV Contrast Only [facility] 12/26 10:52 Order name: IV Saline Lock; Complete Time: 11:20 [facility] 12/26 10:52 Order name: Labs collected and sent; Complete Time: 11:20 [facility] 12/26 10:52 Order name: Urine Test (obtain specimen); Complete Time: 12:07 [facility] 12/26 10:52 Order name: Urine Dipstick-Ancillary (obtain specimen); Complete Time: 12:07 [facility] Administered Medications: 11:20 Drug: NS 0.9% 1000 ml Route: IV; Rate: 1 bolus; Site: right antecubital; tw5 12:22 Follow up: Response: No adverse reaction; IV Status: Completed infusion tw5 11:21 Drug: diphenhydrAMINE 12.5 mg Route: IVP; Site: right antecubital; tw5 12:22 Follow up: Response: No adverse reaction tw5 11:24 Drug: Reglan (metoCLOPramide) 20 mg Route: IVP; Site: right antecubital; tw5 12:22 Follow up: Response: No adverse reaction tw5 Disposition: 22:58 Co-signature as Attending Physician, Ladarius Rider MD I agree with the assessment and kdr plan of care. Disposition Summary: 12/26/20 14:16 Discharge Ordered Location: Home [facility] Condition: Stable [facility] Diagnosis - Other abdominal pain [facility] Followup: [facility] - With: Vick Rivas MD - When: 2 - 3 days - Reason: Recheck today's complaints, Continuance of care, Re-evaluation by your physician Discharge Instructions: - Discharge Summary Sheet [facility] - Abdominal Pain, Adult [facility] Forms: - Medication Reconciliation Form [facility] - Thank You Letter [facility] - Antibiotic Education [facility] - Prescription Opioid Use [facility] Prescriptions: - ondansetron 4 mg Oral tablet,disintegrating - place 1 tablet by TRANSLINGUAL route every 4-6 hours for 1 day; 20 tablet; [facility] Refills: 0, Product Selection Permitted - Pepcid 20 mg Oral Tablet - take 1 tablet by ORAL route every 12 hours for 10 days; 20 tablet; Refills: 0, [facility] Product Selection Permitted - dicyclomine 20 mg Oral Tablet - take 1 tablet by ORAL route 3 times per day; 20 tablet; Refills: 0, Product jenn Selection Permitted Signatures: Dispatcher [employer] Ladarius Garcia MD MD kdr Mickail, Joel, PA PA jmm Wood, Tiffany tw5
--- NOTE | 2020-12-26 14:17 | ER ---
Nurse's Notes [facility] Name: Vicky Klein Age: 45 yrs Sex: Female : 1975 Arrival Date: 12/26/2020 Time: 10:46 Bed 11 Private MD: Telma Wall Diagnosis: Other abdominal pain Presentation: 12/24 12:00 Onset of symptoms was December 24, 2020. tw5 12/26 10:51 Chief complaint: Patient states: " Went out to a eat to a new place and had some bone tw5 marrow dish, then I had an orange and some soda. This was on Friday, and my stomach has been hurting since then. I could see my stomach swelling up.". Coronavirus screen: Vaccine status: Patient reports receiving the 2nd dose of the covid vaccine. Date April 28, 2020. Ebola Screen: Patient denies exposure to infectious person. Patient denies travel to an Ebola-affected area in the 21 days before illness onset. Initial Sepsis Screen: Does the patient meet any 2 criteria? No. Patient's initial sepsis screen is negative. Does the patient have a suspected source of infection? No. Patient's initial sepsis screen is negative. Risk Assessment: Do you want to hurt yourself or someone else? Patient reports no desire to harm self or others. 10:51 Method Of Arrival: Ambulatory tw5 10:51 Acuity: CANDI 3 tw5 Triage Assessment: 10:56 General: Appears in no apparent distress. Behavior is calm, cooperative. Pain: Pain tw5 currently is 3 out of 10 on a pain scale. at worst was 10 out of 10 on a pain scale. GI: Abdomen is round distended. 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 - Social history:: Smoking status: Patient denies any tobacco usage or history of. Screenin:58 Abuse screen: Denies threats or abuse. Denies injuries from another. Nutritional tw5 screening: No deficits noted. Tuberculosis screening: No symptoms or risk factors identified. Fall Risk None identified. No fall in past 12 months (0 pts). Assessment: 10:59 GI: Bowel sounds hyperactive in right upper quadrant, left upper quadrant, right lower tw5 quadrant and left lower quadrant Abd is soft X 4 quads Abdomen is tender to palpation X 4 quads. 12:21 General: Appears in no apparent distress. comfortable, Behavior is calm, cooperative, tw5 appropriate for age, anxious. Pain: Pain currently is 3 out of 10 on a pain scale. 13:18 Reassessment: Patient appears in no apparent distress at this time. Patient and/or tw5 family updated on plan of care and expected duration. Pain level reassessed. Patient is alert, oriented x 3, equal unlabored respirations, skin warm/dry/pink. 14:23 Reassessment: Patient states feeling better. Patient states symptoms have improved. tw5 Vital Signs: 10:51 BP 142 / 88; Pulse 107; Resp 14; Temp 98.6(O); Pulse Ox 99% on R/A; Weight 88.9 kg; tw5 Height 5 ft. 7 in. (170.18 cm); Pain 3/10; 11:20 BP 124 / 83; Pulse 101; Resp 12; Pulse Ox 96% on R/A; Pain 3/10; tw5 12:21 BP 109 / 69; Pulse 92; Resp 14; Pulse Ox 99% on R/A; Pain 3/10; tw5 13:18 BP 112 / 68; Pulse 93; Resp 14; Pulse Ox 96% on R/A; Pain 3/10; tw5 14:23 BP 120 / 76; Pulse 92; Resp 14; Temp 98.1; Pulse Ox 96% on R/A; Pain 0/10; tw5 10:51 Body Mass Index 30.70 (88.90 kg, 170.18 cm) tw5 ED Course: 10:46 Patient arrived in ED. as 10:46 Telma Wall MD is Private Physician. as 10:48 [facility]uf [facility] 10:48 Ladarius Rider MD is Attending Physician. jmm 10:51 Laura Larry is Primary Nurse. tw5 10:55 Triage completed. tw5 10:56 Arm band placed on right wrist. tw5 10:58 No apparent distress. tw5 10:58 Patient has correct armband on for positive identification. Bed in low position. Call tw5 light in reach. Pulse ox on. NIBP on. Noise minimized. Moved to private room. Verbal reassurance given. 11:19 Initial lab(s) drawn, by me, sent to lab. Urine collected: clean catch specimen, clear. tw5 Inserted saline lock: 20 gauge in right antecubital area, using aseptic technique. 11:25 Basic Metabolic Panel Sent. tw5 11:25 CBC with Diff Sent. tw5 11:25 Hepatic Function Sent. tw5 11:25 Lipase Sent. tw5 12:[address] Scan. tw5 12:42 CT Abd/Pelvis - IV Contrast Only In Process Unspecified. EDMS 13:18 Awaiting re-evaluation by ER provider. tw5 14:15 Vick Rivas MD is Referral Physician. [facility] 14:23 No provider procedures requiring assistance completed. IV discontinued, intact, tw5 bleeding controlled, No redness/swelling at site. Pressure dressing applied. Administered Medications: 11:20 Drug: NS 0.9% 1000 ml Route: IV; Rate: 1 bolus; Site: right antecubital; tw5 12:22 Follow up: Response: No adverse reaction; IV Status: Completed infusion tw5 11:21 Drug: diphenhydrAMINE 12.5 mg Route: IVP; Site: right antecubital; tw5 12:22 Follow up: Response: No adverse reaction tw5 11:24 Drug: Reglan (metoCLOPramide) 20 mg Route: IVP; Site: right antecubital; tw5 12:22 Follow up: Response: No adverse reaction tw5 Outcome: 14:16 Discharge ordered by . onel 14:23 Discharged to home ambulatory. tw5 14:23 Condition: good 14:23 Discharge instructions given to patient, Instructed on discharge instructions, follow up and referral plans. Demonstrated understanding of instructions. 14:24 Patient left the ED. tw5 Signatures: Dispatcher [employer] EDMS Damien Yusuf PA PA jmm Martinez, Amelia as Laura Larry tw5 Corrections: (The following items were deleted from the chart) 10:56 10/10 12:00 Onset of symptoms was December 26, 2020 at 10:54 tw5 tw5
[2020-12-26 14:34] VITALS: O2SAT 96
[2020-12-26 14:35] VITALS: BP 120/76; TEMP 98.1
[2020-12-26 15:07] LABS: Urine Blood Negative (Negative); Urine Glucose Negative (Negative); Urine Protein Negative (Negative); Urine Specific Gravity 1.015 (1.005-1.030); Urine pH 5.5 (5.0-7.0)
--- NOTE | 2020-12-26 17:23 | RAD REPORT ---
EXAM DESCRIPTION: CTAbdomen Pelvis W Contrast - 12/26/2020 3:07 pm CLINICAL HISTORY: abdominal pain COMPARISON: Abdomen Pelvis W Contrast dated 08/12/2019; CT ABD PELVIS W CONTRAST dated 01/20/2015; T ransvaginal Study Probe dated 08/18/2020 TECHNIQUE: CT of the abdomen and pelvis was performed. All CT scans are performed using dose optimization technique as appropriate and may include automated exposure control or mA/KV adjustment according to patient size. FINDINGS: Lower chest: No acute abnormality. Liver: No acute abnormality or suspicious lesions. Biliary: No biliary ductal dilatation. Stomach: The gastric wall appears diffusely thickened despite being under distended. Duodenum: No significant focal abnormality. Pancreas: No significant abnormality. Spleen: No significant abnormality. Adrenal: No suspicious lesions. Kidney/ureter: No hydronephrosis. Punctate right renal calculi. Too small to characterize and/or wilian gn appearing renal lesions are noted. Retroperitoneum: No retroperitoneal adenopathy. Vascular: No aneurysm. Bowel: No significant focal abnormality. Moderate stool in the rectum. Peritoneum: Small volume of free fluid in the pelvis, more than typically seen with physiologic appea paty. Bladder: Grossly unremarkable. Reproductive: Several uterine fibroids again noted. Tubal ligation clips. Question submucosal fibroid measuring 4.2 cm with deformation of the endometrial canal. Bones: No acute fracture. Other: n/a IMPRESSION: 1. Diffuse gastric wall thickening. This could reflect gastritis. Endoscopy could better evaluate if clinically indicated. 2. Free fluid in the pelvis which is probably physiologic. Note is made of several uterine fibroids.
== END 2020-12-26 14:24 | disposition home or self-care (01) ==
LOC: ER 10:43
DX: R10.9 Unspecified abdominal pain (principal); E11.9 Type 2 diabetes mellitus without complications
CPT/HCPCS: 85025; 80048; 36415; 80076; 81003; 83690; 74177; Q9967; J2765; J1200; J7030

== ENCOUNTER 2022-03-25 08:53 | Emergency (ER) | payer BC ==
--- OUTSIDE RECORDS SUMMARY | 2022-03-25 08:57 | XMS REPORT | Continuity of Care Document ---
:1975 Author Organization [facility] t Address [address] [place] [address] Care Team Providers Name Role Phone LIVE GUZMÁN Primary Care Physician Unavailable PANTERA MORALES Attending Clinician Unavailable Andrew RUFF, Pantera Bowman Attending Clinician [phone] [place] Hendrickson MD Attending Clinician PANTERA MORALES Admitting Clinician Unavailable Payers Payer Name Policy Type Policy Number Effective Date Expiration Date Prosper ramirez [facility] OS [id number] 2021 00:00:00 POS/PPO/EPO Problems Condition Condition Condition Status Onset Resolution Last Treating Co mments Source Name Details Category Date Date Treatment Clinician Date Uterine Uterine Disease Active 2021-[address] [facility]roid [facility]roid 2[facility]16 [facility] 00:[facility]: Medical 00 Rayle Abnormal Abnormal Disease Active 2021-03 [facility] uterine [facility] bleeding bleeding 00:00: Medica l (AUB) (AUB) 00 Center Intramural Intramural Disease Active [facility] leiomyoma leiomyoma 8-29 [facility] of uterus of uterus 00:00: Medi priyanka 00 Center Submucous Submucous Disease Active [facility] uterine uterine 8-29 [facility] fibroid fibroid 00:00: Medical 00 Center Pelvic Pelvic Disease Active [facility] pain pain 8-29 [facility] 00:00: Medical 00 Rayle Menorrhagi Menorrhagi Disease Active [facility] a with a with 11-12kes irregular irregular 00:00: Medi priyanka cycle cycle 00 Center Irregular Irregular Disease Active [facility] periods/me periods/me 11-12 [facility] nstrual nstrual 00:00: Medical cycles cycles 00 Center Anemia due Anemia due Disease Active [facility] to chronic to chronic 11-12 [facility] blood loss blood loss 00:00: Me dical Center S/P tubal S/P tubal Disease Active [facility] ligation- ligation- 11-12 [facility] 2004 2004 00:00: Medical 00 Center History of History of Disease Active [facility] 2 2 11-12 [facility] sections - sections - 00:00: Me dical 1999, 2004 1999, 2004 00 Ce nter Pre-diabet Pre-diabet Disease Active [facility] es - on es - on 11-12 Lu Metformin Metformin 00:00: Medi priyanka 1000 mg 1000 mg 00 Center BID BID Family Family Disease Active [facility] history of history of 11-12 [facility] colon colon 00:00: Medical cancer in cancer in 00 Cent er father, father, PGM PGM Family Family Disease Active [facility] history of history of 11-12 [facility] essential essential 00:00: Medi priyanka hypertensi hypertensi 00 Ce nter on - dad on - dad Family Family Disease Active [facility] history of history of 11-12 [facility] diabetes diabetes 00:00: Medica l mellitus mellitus 00 Center in mother in mother Dysmenorrh Dysmenorrh Disease Active [facility] ea ea 11-12 [facility] 00:[facility]: Medical 00 Center Dyschezia Dyschezia Disease Active [facility] - worse - worse 11-12 [facility] with with 00:00: Medical menses menses 00 Center Dyspareuni Dyspareuni Disease Active [facility] a due to a due to 11-12 [facility] medical medical 00:00: Medical condition condition 00 Cent er in female in female Allergies, Adverse Reactions, Alerts Allergy Allergy Status Severity Reaction(s) Onset Inactive Treating Comm ents Source Name Type Date Date Clinician NO KNOWN Allergy Active [facility] Family History Family Member Diagnosis Comments Start Date Stop Date Source Natural father Colon cancer [facility] Natural father High blood [facility] Natural mother Diabetes [facility] Paternal grandmother Colon cancer [facility] Social History Social Habit Start Date Stop Date Quantity Comments Source History SDOH [facility] Alcohol Std Drinks Medica [facility] History SDOH [facility] Alcohol Binge Medical [address] [facility] History SDOH [facility] Alcohol Comment Medical C enter Alcohol intake 2022-03-14 2022-03-[address] [facility] 00:00:00 00:00:00 non-drinker Medical Cente r (finding) Exposure to 2022-02-16 2022-02-[address] [facility] SARS-CoV-2 (event) 00:00:00 12:48:00 [facility] Tobacco use and 2021-10-24 2021-10-[address] [facility] [facility] exposure 00:00:00 00:00:00 Medical Center History SDOH 2021-10-24 2021-10-[address] [facility] Alcohol Frequency 00:00:00 00:00:00 [facility] Sex Assigned At [address] [facility] 00:00:00 00:00:00 Medical Center Smoking Status Start Date Stop Date Source Never smoker [facility] Medications Ordered Filled Start Stop Current Ordering Indication Dosage Frequency Signature Comments Components Source Medication Medication Date Date Medication? Clinician (SIG) Name Name semaglutide 2021-03 Yes .5mg Q7D Inject 0.[address] (Ozempic) 2-29 mg [facility] 0.25 mg or 10:41: subcutaneo M edical 0.5 mg(2 56 usly once Center mg/1.5 mL) a week. PnIj ibuprofen 2021-03- Yes 800mg Take [address] [facility] (ADVIL,MOTR 05-02 tablet [facility] IN) 800 MG 00:00: 23:59 (800 mg Med ical tablet 00 :00 total) by Center mouth every 6 (six) hours for 30 days. docusate 2021-03- Yes 200mg Q.5D Take 2 [facility] sodium 05-02 capsules [facility] (COLACE) 00:00: 23:59 (200 mg Medic al 100 MG 00 :00 total) by Center capsule mouth 2 (two) times daily for 30 days. HYDROcodone 2021-03- No 1{tbl} Take [address] -acetaminop 2-16 12-26 tablet by Suni marroquin hen (NORCO 00:00: 23:59 mouth Medic al 5-325) 00 :00 every 8 Center 5-325 mg (eight) per tablet hours as needed (severe pain only; take with food) for up to 10 days. Max Daily Amount: 3 tablets Tri-Lo-Spri Yes 1{tbl} QD Take [address] ntec 8-15 tablet by Tae 0.18/0.215/ 00:00: mouth Medic al 0.25 mg-25 00 daily. Center mcg per tablet famotidine Yes 40mg Take [address] (PEPCID) 40 7-25 by mouth 2 [facility] MG tablet 00:00: (two) Medical 00 times Center daily as needed. metFORMIN Yes 1000mg Q.5D Take 1,[address] (GLUCOPHAGE 5-26 mg by Tae ) 1000 MG 00:00: mouth 2 Medic al tablet 00 (two) Center times daily. Vital Signs Vital Name Observation Time Observation Value Comments Source HEIGHT 2022-03-14 10:41:00 170.2 cm WEIGHT 2022-03-14 10:41:00 92.625 kg HEIGHT 2022-03-14 10:41:00 170.2 cm WEIGHT 2022-03-14 10:41:00 92.625 kg HEIGHT 2022-02-26 12:48:00 170.2 cm WEIGHT 2022-02-26 12:48:00 92.534 kg HEIGHT 2022-02-26 12:48:00 170.2 cm WEIGHT 2022-02-26 12:48:00 92.534 kg HEIGHT 2022-02-26 12:48:00 170.2 cm WEIGHT 2022-02-26 12:48:00 92.534 kg HEIGHT 2021-11-05 09:46:00 170.2 cm WEIGHT 2021-11-05 09:46:00 97.523 kg HEIGHT 2021-11-05 09:46:00 170.2 cm WEIGHT 2021-11-05 09:46:00 97.523 kg Systolic blood 2022-03-14 10:41:00 134 mm[Hg] [facility] Diastolic blood 2022-03-14 10:41:00 86 mm[Hg] [facility] Heart rate 2022-03-14 10:41:00 98 /min [facility] Body temperature 2022-03-14 10:41:00 36.89 Krista [facility] Body height 2022-03-14 10:41:00 170.2 cm [facility] Body weight 2022-03-14 10:41:00 92.625 kg [facility] BMI 2022-03-14 10:41:00 31.98 kg/m2 [facility] Respiratory rate 2022-03-01 14:30:00 19 /min [facility] Oxygen saturation in 2022-03-01 14:30:00 97 /min [facility] Arterial blood by Medical Ce nter Pulse oximetry Procedures Procedure Date / Time Performed Performing Clinician [facility] e TISSUE EXAM 2022-03-01 10:37:00 Pantera Morales [facility] ROBOTIC LAPAROSCOPY,TOTAL 2022-03-01 09:34:00 Pantera Morales I [facility] HYSTERECTOMY/ BILATERAL [facility] SALPINGECTOMY SINGLE INCISION (SILS) POCT-GLUCOSE METER 2022-03-01 07:29:00 Pantera Morales [facility] CBC W/PLT COUNT & AUTO 2022-03-01 07:24:00 Pantera Morales [facility] DIFFERENTIAL [facility] HCG, SERUM, QUALITATIVE 2022-03-01 07:24:00 Pantera Morales [facility] BASIC METABOLIC PANEL 2022-03-01 07:24:00 Ladarius Barker [facility] TYPE AND SCREEN, 2022-03-01 07:24:00 Pantera Morales [facility] s AUTOMATED [facility] CBC W/PLT COUNT & AUTO 2022-03-01 07:24:00 [facility] DIFFERENTIAL [facility] SCREEN, URINE 2022-03-01 07:00:00 Tamiko Moralese [facility] EKG-SCANNED 2022-03-01 00:00:00 ProviderJovi [facility] es Scanning [facility] US PELVIS 2021-11-20 00:00:00 MoralesPantera [facility] Plan of Care Planned Activity Planned Date Details Comments Source Future Scheduled 2023-03-[address] [facility] Test 00:00:00 Counseling and Medical Cente r Screening (12+) [code = Tobacco Cessation Counseling and Screening (12+)] Future Scheduled [address] [facility] Test 00:00:00 (12+) [code = Medical Center DEPRESSION SCREENING (12+)] Future Scheduled 2021-11-15 INFLUENZA VACCINE (#1) [facility] Test 00:00:00 [code = INFLUENZA Medical Ce nter VACCINE (#1)] Future Scheduled 2019 Lipid panel (procedure) [facility] Test 00:00:00 [code = 57273466] Medical Ce nter Future Scheduled 1995 Screening for malignant [facility] Test 00:00:00 neoplasm of cervix Medical C enter (procedure) [code = 140664055] Future Scheduled 1993 DTAP/TDAP/TD VACCINES [facility] Test 00:00:00 (1 - Tdap) [code = Medical C enter DTAP/TDAP/TD VACCINES (1 - Tdap)] Future Scheduled 1992 HEPATITIS C SCRE[facility]ING [facility] Test 00:00:00 [code = HEPATITIS C Medical Center SCREENING] Future Scheduled 1974 COVID-19 VACCINE (#1) [facility] Test 00:00:00 [code = COVID-[address] VACCINE (#1)] Future Scheduled 1974 Screening for malignant [facility] Test 00:00:00 neoplasm of colon Medical Ce nter (procedure) [code = 364672444] Future Scheduled 1974 Screening for malignant [facility] Test 00:00:00 neoplasm of colon Medical Ce nter (procedure) [code = 752405528] Future Scheduled 1974 Screening for malignant [facility] Test 00:00:00 neoplasm of colon Medical Ce nter (procedure) [code = 191371493] Future Scheduled 1974 Screening for malignant [facility] Test 00:00:00 neoplasm of colon Medical Ce nter (procedure) [code = 251102826] Future Scheduled 1975 Sigmoidoscopy [code = [facility] Test 00:00:00 Sigmoidoscopy] [facility] Colon[facility] (combo[facility] Test 00:00:00 [code = CT Colonography [facility] (combo)] Encounters Start End Encounter Admission Attending Care Care Encounter Source Date/Time Date/Time Type Type Clinicians Facility Department ID 2022-04-11 2022-04-11 Outpatient ANDREW [facility] [id number] 00:00:00 00:00:00 [facility] 2022-03-14 2022-03-14 Office Andrew [facility] [id number] 10:45:00 12:20:55 Visit [facility] 2022-03-14 2022-03-14 Outpatient CHARLENE MORALES [facility] [id number] 10:30:35 12:20:55 [facility] 2022-03-04 2022-03-04 Telephone Andrew [facility] [id number] 00:00:00 00:00:00 [facility] 2022-03-01 2022-03-01 [facility] [id number] [facility] 06:25:00 15:53:00 [facility] 2022-03-01 2022-03-01 [facility] Andrew [facility] [id number] 06:25:00 15:53:00 Encounter [facility] 2022-03-01 2022-03-01 Anesthesia [place] Hendrickson [facility] [id number] [facility] 09:34:00 11:05:00 Event [facility] 2022-03-01 2022-03-01 Surgery Andrew [facility] [id number] 09:00:00 11:00:00 [facility] 2022-02-26 2022-02-26 Travel [facility] [id number] [facility] 00:[facility] 00[facility]00 [facility] 2022-02-11 2022-02-11 Telephone Morales, [facility] [id number] 00:00:00 00:00:00 [facility] 2021-11-20 2021-11-20 [id number] 00:00:00 00:00:00 Only [facility] 2021-11-12 2021-11-12 [facility] [id number] 00:00:00 00:00:00 [facility] 2021-11-05 2021-11-05 [facility] [id number] 10:00:00 10:22:02 Visit [facility] 2021-11-05 2021-11-05 Outpatient EL ANDREW [facility] [id number] 09:32:28 10:22:02 [facility] 2021-11-02 2021-11-02 Telephone Andrew [facility] [id number] 00:00:00 00:00:00 [facility] Results Test Description Test Time Test Comments Results Result Comments Source Tissue Exam 2022-03-06 17:12:14 Test Item Value Reference Range Interpretation Comme nts Case Report (test code = 104) Surgical Pathology Report Case: [id number] Authorizing Provider: Pantera Morales MD Collected: 03/01/2022 10:37 AM Ordering Location: [facility] PERIOPERATIVE Received: 03/04/2022 09:40 AM SERVICES Pathologist: Rhonda Tejada MD Specimen: Uterus w/Cervix & Bilateral Fallopian Tubes DIAGNOSIS (test code = 3220) o3znqTZbZQPux9qeWKIoyNFgOtOrPxGcSxPaZp pc dWMxIHtccnRmMVxlcGljOTYwMlxhbnNpXHNwbHRw Y2XipvrdIMquJZ9jXW1twAxigXZdwABrXAVlXqWy t7ovo968mUMxr7xwDVFTjgvqaCh3oZnjJ27ww1D2 WpyjH42mcKOsQXY4HWAlTXEhdVOmBWCbVWR4GZOc yOCvV1htYXOuMO4taojrLAqaGBafJEVdoYJ6OWLy pORgV8SrNIQiOWvqRAKiikc1FsZkEf4mtDNjhVqc MFxwYXJkXHBsYWluXGZzMjAgVVRFUlVTLCBDRVJW JJtzLO0UJMBIROHLIDVIHCKFSSbXX2ZJFZ3fEQUW LJEtKOuST7GHKdEKIO9KBCYJRMUVCDTBLVBLTQHD GCVEWYmAPL1MHACAG58ZFkzlTAOoFCUuPQWiH0KM A1tFDyWeMUylA45trDDmZBLLLRLVBHv7VRHrshLv DMSqGC8LKDNIQTeCQR8IDSOlWUpPLLXPRUvPCxzm OJUyEQFQDR2JZABYCIJFQzThcBKtHELzSM6hC9HT D8eNFUFOM1rJWrKDUFCRJsWuOG7FJ58YHYQWDM7l O2gLJYWZKBVJFXAFGMJVKWfED9uRNMQuhyQxKHWt TZ1RSRiTTFSMVUsKL2uZTS3HZGoCAtTVFUEICLTP HnLHZv9KWWIUACKYBBHtedYlUMzKGMBTRotLLKmj NDVbdyLgOQWzYBsOLO1ZKS6LVBFPOFQmfnFvPBNb VO3WAOmHY5DAMDFYQYGSHFqSUAhGHmzIRLnySWUN AZ9BNofLN5HaUF4QF6VVM6bZGFKJNGiPGYPoZ8Yo KBNCQLzRWM1VNLBGSDUOTMZyyfHeE4PGQ2NTIgqz KFXhBWEkDZNoT2BZL0NJRWPYYItZM2eTGiRzoRSu PCPKTBpBGRPYUFtdKgONFA1EOYCCUXNQIiNLZfeh OQEdALCyWXMtMt4lWAJZYL7BG8vEGpXMXMIJElNQ YL2CSFJznezeAMVfsTNzWFQxuDJlnOhrocIgOUnr c5CsOBejMPNuHF7zhZzkMLLkLB2iMGPoW8cvfJ6d ixh4BaQyUSXeHrA1GPQzqtD9Qva7BSKcXSppp5mk c7QdMMStDUv7mOuqWiVcTRDqw6rpmnInLcPeKBJq JPAnLNKplWPvV248v6key4spotEknWL2TMVbHMG4 VCszarEwjaF7QFjawZWvIaF1ZUcenfZjTBjpkyLr twJcJch0IQPhK847LVX4jLcdk2kjMUK9TXPyQDYl ZtPeJu3cnBPbL338XSPrPHUCYFHirFg8UEFrpcAb yiCzdTNYu158B168l2lhCILxyzBzrXqXhzgwt7bc F044CSUfsTVdqoQfMnRqHHVvlVKzrGR4IQZfGL2b mrejYXghGRnkAVBjuuA5XNOjcZLtB7AlVSDjIN7u qtrdZRV3MRjlJMBsOYN0ZvKnGZIvl9Wkrbg3GlLm hp7taq43WYU4c4RmhLfrTAU3WGW8FwGlQf6ucEZw WYDrSW7ePoNtuVIuEUCtie96uQqrJRttDFV1KDYa sdBhu4Pul5hyKpOvlyApZ0lxX6SbJGXdGRErPXRp XyMtexJcn0Uiy0NcsAHggOa1m2hiZROsNJPbwHbe j6amDLI8IEEgnTHsE4widC1bNXVtYJ4omwdhm4ew POswXVulKZYwiSX9yvQ9QPScqOImO7WctV5dHOPh SJjeNAHxxug7DoYbWm7ekRWxiPzoANwgLggmTHhk XHBnbmNvbnRccGduZGVjXHBsYWluXHBsYWluXGYw XGZzMjRccWxcbGFuZzEwMzNcaGljaFxmMVxkYmNo SFJnMEnhW8mfUyMeZcPaIzq8YNWiaPLjRDAdMvf2 JGFunFTuVTHFkNcfuY1nIEMcnIrgnA5kaDX8JWCl htUgdMCLhL7qPWZGpN6rHzUiVYYmEmX9OXkpGrAy cGFyfX0= CPT Code(s) (test code = 1227) j3ptxZFbGZAocYH3WwPuILUxe6tjz1ZgbVBl cGFy TObsxMUvksBbtd64yGA2nD64EW9gOMSfUfY9UUKk zgB2Ktu0NWBkFOGxgTBdQ725c9poe4iehcSckOC4 qHelVOOhyydeSoV2CDdsFUExfjhfHTn0EXxuBAJj wUU5ECLgpLEiZ5NlPBIuRX4zxrr2JOH2KLbgHKHw CeS0URWvbTExXURldIdeAJagx825HFT0UfEqNDMg zqFthBgigT5gFuJhPQT3OSQrV9vsIYY4 CLINICAL HISTORY (test code = 2859) t4wngMYuESCxaII0JkEbBZMrg8kcz1H sdHBncGFy KGubqKYtmzNuna13hDM3rF17ZC1kLHCbRcI5HJFg ipA5Szg3EVUkAXDsdPAxQ143t2hui4ofjbWvtEJ7 oConAFFmfhrnXhU8LVxwKBWtawmnZUa6IDmpQGZq rFA8TXEkdYUaY9SbZSGbBX6xyxn7RLB4TJzfVROe DiW6HJWfwMNvQFXumPrlNItzw523DQD8PcBdSPBh mlCjpHqfuS8oCjVxEMZMnKNbKN6iirNsEZQhLM6l br2yxvwrZ3xeXQF6zHCgKQumgaKxaPdyjrGrlTGo ZSwgZHlzcGFyZXVuaWEsIGZlbWFsZSwgcGVsdmlj KFQnpT4bKPhpyAMyjLTiBDdebEXia151p10jIZ5r LWS9DJI8xpiaI2lyo80kTeWwyQ4cJUYao9FfEMIr GG6wLN6rdMRatW== GROSS DESCRIPTION (test code = o3qpqQAzMHDnkLH4SjSqNGIux6hyk5KevFSn cGy [id number]) [file] P4NfQ1SsjoD3EXHlsb4= MICROSCOPIC DESCRIPTION (test code = k1sqhJUtZXFtfLX5UdSwRPKsn1vvy9 BsdHBncGFy 3371) DFvboATlosXfof35vQM9hF74NC0hBGJnZyH9UNEc svW4Sri1LIAoVFMbyUJiR536v7evx7pedvXpzIL8 xQqhFYLzgvjvWrJ4ZFznHZGuqyskZKx7DDtjFIRw jBB1ECVheGMcX7RdCSTuGF8iyyj9TQM9NYdmUWYu QrP3GMXrdSQkMCEbcRjqGAtzq756NWY5XjVqRBPr viSenXhazK8oOsAwLCXYJUSLE2QYYIOfbJLigI== [facility] [id number] 17:12:14Surgical Pathology Report Case: [id number] Authorizing Provider: Pantera Morales MD Collected: 03/01/2022 10:37 AM Ordering Location: [facility] PERIOPERATIVE Received: 03/04/2022 09:40 AM SERVICES Pathologist: Rhonda Tejada MD Specimen: Uterus w/Cervix & Bilateral Fallopian Tubes UTERUS, CERVIX AND BILATERAL FALLOPIAN TUBES, HYSTERECTOMY WITH BILATERAL SALPINGECTOMY: WEIGHT: 148 GM CERVIX: - NO PATHOLOGIC ALTERATION ENDOMETRIUM: - WEAKLY PROLIFERATIVE ENDOMETRIUM WITH TUBAL METAPLASIA - NO HYPERPLASIA OR INVASIVE CARCINOMA SEEN MYOMETRIUM: - LEIOMYOMATA - NO INCREASED CELLULARITY, HEMMORRHAGE, NECROSIS, ATYPIA OR MALIGNANCY SEEN SEROSA: - SEROSAL ADHESIONS BILATERAL FALLOPIAN TUBES: - NO PATHOLOGIC ALTERATION Signing Pathologist Direct Phone Line: [phone] signed by Rhonda Tejada MD on 03/06/2022 at 5:12 [id number], menorrhagia, with irregular cycle, dyspareunia, female, pelvic pain, intramural leiomyoma of uterus, chronic blood loss anem ia.A. Uterus w/Cervix & Bilateral Fallopian Tubes.Received in formalin labeled with the patient's information and labeled "uterus with cervix and bilateral fallopian tubes" is a specimen of uterus with attached cervix and detached fallopian tubes. The specimen without fallopian tubes weighs 148 gm. The uterus with cervix measures 11 cm from the external os to the fundus, 7.2 cm from cornu to cornu, and 7 cm in anterior posterior dimensions. The cervical os is transversely slit and measures 1.2 cm. There is mucus exuding out of the external os. There are many adhesions mostly on the anterior side of the uterus, anterior serosa of the uterus and some on the posterior serosa. The specimen is bivalved to reveal distorted endometrial cavity and multiple leiomyomas in the myometrium that range in size from 1.8 to 3 cm in maximum dimension. The endometrial cavity is curvilinear and shows very thin endometrial lining, less than 0.1 cm. The fallopian tubes are fimbriated, measure 1.5 and 2.5 cm. On c ross sections, they show pinpoint lumen and wall thickness of 0.4 cm. Import/Export Freight Forwarder sections are submitted as follows: A1, A2, A3, A4, cervix and posterior serosa; A5, endometrium, endomyometrium withleiomyoma; A6, endometrium; A7, A8, endomyometrium with leiomyomata myometrium; A9, A10, A11, A12, fallopian tubes. BH/ew PERFORMEDBASIC METABOLIC [id number] 07:52:02 Test Item Value Reference Range Interpretation Comments SODIUM (BEAKER) 137 meq/L 135-148 (test code = 381) POTASSIUM 4.8 meq/L 3.6-5.5 Specimen slight ly (BEAKER) (test hemolyzed code = 379) CHLORIDE (BEAKER) 106 meq/L 98-106 (test code = 382) CO2 (BEAKER) 22 meq/L 20-29 (test code = 355) BLOOD UREA 10 mg/dL 10-26 NITROGEN (BEAKER) (test code = 354) CREATININE 1.17 mg/dL 0.50-1.20 Specimen slight ly (BEAKER) (test hemolyzed code = 358) GLUCOSE RANDOM 103 mg/dL 70-110 (BEAKER) (test code = 652) CALCIUM (BEAKER) 9.2 mg/dL 8.5-10.5 (test code = 697) EGFR (BEAKER) 58 Interpretatio n of eGFR (test code = mL/min/1.73 values Stage De scription 1092) sq m Result G1 Myriam l or high >=90 G2 Mildly decreased 60-89 G3a Mildl y to moderately 45- 59 G3b Moderately to s everely 30-44 G4 Severl y decreased 15-29 G5 Kidney failure <15Reported eGF R is based on the CKD-EPI 2020 equation that d oes not use a race coefficientEsti mated GFR is not as accur ate as Creatinine Rosanne newman in predicting glom erular filtration rate . Estimated GFR is not appl icable for dialysis patien ts Double Cut Sawyer ID - [id number] ID - [id number] ID - [id number] ID - [id number] ID - [id number] ID - [id number] ID - [id number] ID - [id number] ID - [id number] ID - [id number] ID - [id number] ID - [id number], SERUM, QUALITATIVE 2022-03-01 07:46:11 Test Item Value Reference Range Interpretation Comments TEST SERUM (BEAKER) (test Negative code = 584) POC-Glucose [id number] 07:40:37 Test Item Value Reference Range Interpretation Comments POC-Glucose Meter (test 106 mg/dL 70-110 : TE STED AT [facility] code = 1538) [facility] [place] [address]: Double Cut Sawyer/Techni shyanne ID = [id number] for Ramo Pacheco Lab Interpretation (test Normal code = 43530-4) [facility] [id number] 07:40:37 Test Item Value Reference Range Interpretation Comments POC-GLUCOSE METER 106 mg/dL 70-110 : TESTED A T [facility] [address] (BEAKER) (test code [address], = 1538) [facility] [place] [address]: Double Cut Sawyer/Techni shyanne ID = [id number] for [facility] CBC W/PLT COUNT & AUTO [id number] 07:37:21 Test Item Value Reference Range Interpretation Comments WHITE BLOOD CELL COUNT (BEAKER) 9.9 K/ L 4.0-10.0 (test code = 775) RED BLOOD CELL COUNT (BEAKER) 4.01 M/ L 4.00-5.00 (test code = 761) HEMOGLOBIN (BEAKER) (test code = 11.0 GM/DL 12.0-15.5 L 410) HEMATOCRIT (BEAKER) (test code = 33.0 % 36.0-46.0 L 411) MEAN CORPUSCULAR VOLUME (BEAKER) 82 fL 82-99 (test code = 753) MEAN CORPUSCULAR HEMOGLOBIN 27.4 pg 27.0-33.0 (BEAKER) (test code = 751) MEAN CORPUSCULAR HEMOGLOBIN CONC 33.3 GM/DL 32.0-36.0 (BEAKER) (test code = 752) RED CELL DISTRIBUTION WIDTH 13.3 % 12.0-15.0 (BEAKER) (test code = 412) PLATELET COUNT (BEAKER) (test 335 K/CU MM 150-430 code = 756) MEAN PLATELET VOLUME (BEAKER) 9.7 fL 6.0-11.5 (test code = 754) NUCLEATED RED BLOOD CELLS 0 /100 WBC 0-0 (BEAKER) (test code = 413) NEUTROPHILS RELATIVE PERCENT 87 % (BEAKER) (test code = 429) LYMPHOCYTES RELATIVE PERCENT 11 % (BEAKER) (test code = 430) MONOCYTES RELATIVE PERCENT 1 % (BEAKER) (test code = 431) EOSINOPHILS RELATIVE PERCENT 0 % (BEAKER) (test code = 432) BASOPHILS RELATIVE PERCENT 0 % (BEAKER) (test code = 437) NEUTROPHILS ABSOLUTE COUNT 8.64 K/ L 1.80-8.00 H (BEAKER) (test code = 670) LYMPHOCYTES ABSOLUTE COUNT 1.11 K/ L 1.48-4.50 L (BEAKER) (test code = 414) MONOCYTES ABSOLUTE COUNT (BEAKER) 0.10 K/ L 0.00-1.30 (test code = 415) EOSINOPHILS ABSOLUTE COUNT 0.00 K/ L 0.00-0.50 (BEAKER) (test code = 416) BASOPHILS ABSOLUTE COUNT (BEAKER) 0.03 K/ L 0.00-0.20 (test code = 417) IMMATURE GRANULOCYTES-RELATIVE 0.40 % 0.00-0.00 H PERCENT (BEAKER) (test code = 2801) Screen, [id number] 07:06:42 Test Item Value Reference Range Interpretation Comments Preg Test, Ur (test code = 2112-1) Negative Negative Lab Interpretation (test code = Normal 33913-0) [facility] [id number] 07:06:42 Test Item Value Reference Range Interpretation Comments TEST URINE (BEAKER) (test Negative Negative code = 583)
[2022-03-25] MEDS ORDERED: DIAZEPAM 5 MG TABLET ONE (09:29)
[2022-03-25] MEDS ORDERED: HYDROMORPHONE HCL 1 MG/ML INJ ONE (09:29)
--- NOTE | 2022-03-25 10:17 | RAD REPORT ---
EXAM DESCRIPTION: CT - Stone Protocol - 03/25/2022 9:43 am CLINICAL HISTORY: back pain post hyst COMPARISON: Abdomen Pelvis W Contrast dated 12/26/2020; Abdomen Pelvis W Contrast dated 0; Stone Protocol dated 11/29/2017; CT ABD PELVIS W CONTRAST dated 01/20/2015 TECHNIQUE: Axial 3 mm thick images were obtained without oral or IV contrast. The [id number] span s the entirety of the system including uppermost abdomen and lung bases. All CT scans are performed using dose optimization technique as appropriate and may include automated exposure control or mA/KV adjustment according to patient size. FINDINGS: No hydronephrosis is present and no obstructing ureteral calculi. Punctate parenchymal priyanka cifications are seen in the right kidney. A punctate nonobstructing calyx calcifications seen central left kidney. There is a 3 centimeter round fluid attenuation homogeneous mass upper pole of the left kidney. This has enlarged from 2020 imaging where it was seen to be a simple cyst. No suspicious yonathan al masses. Isodense masses and pyelonephritis are not excluded on a stone protocol CT scan. No signif icant adrenal finding. No urinary bladder suspicious finding. History indicates patient is status post hysterectomy. Trace amount of stranding is seen at the vagin al cuff within normal range for a post hysterectomy patient. Trace amount of fluid in the cul de sac also within normal limits for this recent surgical procedure. No suspicious ovarian finding. It is po ssible the ovaries are absent as well. Ovaries are difficult to distinguish from on opacified bowel t hat is isodense to ovarian tissue. No adnexal mass, hematoma or other abnormality seen as a source fo r pain. Imaged portions of the liver, spleen and pancreas show no suspicious findings on non-contrast imaging . No gallbladder or biliary tree abnormality identified. No stomach or small bowel finding. There is a large stool volume filling but not dilating the entire colon from cecum to rectum. No colon mass or wall thickening seen. No hernia, mass or bulky lymphadenopathy noted. No free air, free fluid or inflammatory stranding. No significant bony abnormality. Facet joint degenerative changes are present. IMPRESSION: Trace amounts of soft tissue stranding and fluid are present near the vaginal cuff, well within normal range for a three-week post hysterectomy patient. No abscess, hematoma or other abnormality of the pelvis to explain back pain and right radiculopathy. Isodense masses and pyelonephritis are not excluded on stone protocol technique.A left renal cyst has enlarged since the 2020 comparison.
[2022-03-25 10:59] LABS: Urine Blood Negative (Negative); Urine Glucose Negative (Negative); Urine Protein Negative (Negative)
[2022-03-25 11:21] LABS: Urine Bacteria <20 /HPF (<20); Urine Mucus Slight /HPF (None Seen)
--- NOTE | 2022-03-25 11:50 | EDPHYS ---
Physician Documentation [facility] Name: Vicky Klein Age: 47 yrs Sex: Female : 1975 Arrival Date: 03/25/2022 Time: 08:57 Bed 23 Private MD: Avel Rizo HPI: 03/25 09:29 This 47 yrs old Black Female presents to ER via Wheelchair with complaints of Back snw Pain, Post Surgical Pain. 09:29 The patient presents with pain that is acute, with no known mechanism of injury. The snw symptoms are located in the low back. Onset: The symptoms/episode began/occurred suddenly, and became worse. The pain radiates to the right hip. Associated signs and symptoms: Pertinent negatives: fever. The problem was sustained pt had a recent lap hyst. She was feeling better and then for the past two days has been unable to move without significant back pain and hip/thigh pain (R>L). Severity of symptoms: At their worst the symptoms were moderate, severe. The patient has not experienced similar symptoms in the past. as noted. 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 - Social history:: Smoking status: Patient denies any tobacco usage or history of. ROS: 09:29 Constitutional: Negative for fever, chills, and weight loss, Eyes: Negative for injury, snw pain, redness, and discharge, ENT: Negative for injury, pain, and discharge, Neck: Negative for injury, pain, and swelling, Cardiovascular: Negative for chest pain, palpitations, and edema, Respiratory: Negative for shortness of breath, cough, wheezing, and pleuritic chest pain, Abdomen/GI: Negative for abdominal pain, nausea, vomiting, diarrhea, and constipation, : Negative for injury, bleeding, discharge, and swelling, MS/Extremity: Negative for injury and deformity, Skin: Negative for injury, rash, and discoloration, Neuro: Negative for headache, weakness, numbness, tingling, and seizure, Psych: Negative for depression, anxiety, suicide ideation, homicidal ideation, and hallucinations. 09:29 Back: Positive for decreased range of motion, pain at rest, pain with movement, radiated pain. Exam: 09:27 Constitutional: This is a well developed, well nourished patient who is awake, alert, snw and in no acute distress. Head/Face: Normocephalic, atraumatic. Eyes: Pupils equal round and reactive to light, extra-ocular motions intact. Lids and lashes normal. Conjunctiva and sclera are non-icteric and not injected. Cornea within normal limits. Periorbital areas with no swelling, redness, or edema. Neck: Trachea midline, no thyromegaly or masses palpated, and no cervical lymphadenopathy. Supple, full range of motion without nuchal rigidity, or vertebral point tenderness. No Meningismus. Chest/axilla: Normal chest wall appearance and motion. Nontender with no deformity. No lesions are appreciated. Cardiovascular: Regular rate and rhythm with a normal S1 and S2. No gallops, murmurs, or rubs. Normal PMI, no JVD. No pulse deficits. Respiratory: Lungs have equal breath sounds bilaterally, clear to auscultation and percussion. No rales, rhonchi or wheezes noted. No increased work of breathing, no retractions or nasal flaring. Abdomen/GI: Soft, non-tender, with normal bowel sounds. No distension or tympany. No guarding or rebound. No evidence of tenderness throughout. Skin: Warm, dry with normal turgor. Normal color with no rashes, no lesions, and no evidence of cellulitis. MS/ Extremity: Pulses equal, no cyanosis. Neurovascular intact. Full, normal range of motion. Neuro: Awake and alert, GCS 15, oriented to person, place, time, and situation. Cranial nerves II-XII grossly intact. Motor strength 5/5 in all extremities. Sensory grossly intact. Cerebellar exam normal. Normal gait. Psych: Awake, alert, with orientation to person, place and time. Behavior, mood, and affect are within normal limits. 09:27 Back: pain, that is moderate, that is severe, of the low back area, ROM is painful, with all movement, decreased, with all movement, normal spinal alignment noted, CVA tenderness, is absent, muscle spasm, is appreciated in the low back area. Vital Signs: 09:12 BP 110 / 92; Pulse 112; Resp 16; Temp 98.2; Pulse Ox 99% on R/A; Weight 92.53 kg; iw Height 5 ft. 7 in. (170.18 cm); Pain 10/10; 10:16 BP 105 / 69; Pulse 98; Pulse Ox 96% on R/A; ap3 09:12 Body Mass Index 31.95 (92.53 kg, 170.18 cm) iw MDM: 09:16 Patient medically screened. snw 09:20 Differential diagnosis: chronic back pain, Osteoarthritis Pyelonephritis uti. snw 09:32 Data reviewed: vital signs, nurses notes. Data interpreted: Pulse oximetry: on room air snw is 99 %. Interpretation: normal. Counseling: I had a detailed discussion with the patient and/or guardian regarding: the historical points, exam findings, and any diagnostic results supporting the discharge/admit diagnosis, the presence of at least one elevated blood pressure reading (>120/80) during this emergency department visit. Special discussion:. 10:30 Response to treatment: the patient's symptoms have markedly improved after treatment, snw pt able to move enough now to ambulate to bathroom, UA pending. 11:48 Special discussion: UTI s/p hysterectomy - will give augmentin. snw 03/25 09:16 Order name: Urine Culture snw 03/25 09:16 Order name: Urine Microscopic Only; Complete Time: 11:43 snw 03/25 09:16 Order name: CT Stone Protocol; Complete Time: 10:30 snw 03/25 10:59 Order name: Urine Dipstick-Ancillary; Complete Time: 11:09 EDMS 03/25 09:16 Order name: Urine Dipstick-Ancillary (obtain specimen); Complete Time: 10:58 snw Administered Medications: 09:31 Drug: Valium (diazepam) 10 mg Route: PO; ap3 10:16 Follow up: Response: No adverse reaction; Pain is decreased ap3 09:31 Drug: Dilaudid (HYDROmorphone) 1 mg Route: IM; Site: right gluteus; ap3 10:15 Follow up: Response: No adverse reaction; Pain is decreased ap3 11:57 Drug: Augmentin (Amoxicillin-Clavulanate) 500 mg Route: PO; mb9 12:09 Follow up: Response: No adverse reaction mb9 Disposition Summary: 03/25/22 11:49 Discharge Ordered Location: Home snw Condition: Stable snw Diagnosis - Radiculopathy, lumbar region snw - UTI/ Urinary tract infection, site not specified snw Followup: snw - With: Emergency Department - When: As needed - Reason: Worsening of condition Followup: snw - With: Private Physician - When: 2 - 3 days - Reason: Recheck today's complaints, Continuance of care, Re-evaluation by your physician Discharge Instructions: - Discharge Summary Sheet snw - Lumbosacral Radiculopathy snw - Urinary Tract Infection, Adult snw - Rehydration, Adult snw Forms: - Medication Reconciliation Form snw - Thank You Letter snw - Antibiotic Education snw - Prescription Opioid Use snw - Work release form snw Prescriptions: - Augmentin 875-125 mg Oral Tablet - take 1 tablet by ORAL route every 12 hours for 10 days; 20 tablet; Refills: 0, snw Product Selection Permitted - orphenadrine citrate 100 mg Oral Tablet Sustained Release - take 1 tablet by ORAL route 2 times per day As needed; 20 tablet; Refills: 0, snw Product Selection Permitted - promethazine 25 mg Oral Tablet - take 1 tablet by ORAL route every 6 hours As needed; 20 tablet; Refills: 0, snw Product Selection Permitted Signatures: Dispatcher [employer] Suzette Campos, BIANCA-C AQUATICS COORDINATOR-Csnw Mary Ann Klein RN RN iw Prokisch, Amanda RN RN ap3 Twila Ibrahim RN RN mb9 Corrections: (The following items were deleted from the chart) 09:16 09:14 PMHx: diabetes mellitus; [facility] 09:16 09:14 PMHx: ibs; iw
--- NOTE | 2022-03-25 11:50 | ER ---
Nurse's Notes [facility] Name: Vicky Klein Age: 47 yrs Sex: Female : 1975 Arrival Date: 03/25/2022 Time: 08:57 Bed 23 Private MD: Diagnosis: Radiculopathy, lumbar region;UTI/ Urinary tract infection, site not specified Presentation: 03/25 09:12 Chief complaint: Patient states: lower back pain radiating to right leg and to abdomen, iw started on Friday , worse over weekend , had hysterectomy three weeks ago. Coronavirus screen: At this time, the client does not indicate any symptoms associated with coronavirus-19. Ebola Screen: Patient negative for fever greater than or equal to 101.5 degrees Fahrenheit, and additional compatible Ebola Virus Disease symptoms Patient denies exposure to infectious person. Patient denies travel to an Ebola-affected area in the 21 days before illness onset. No symptoms or risks identified at this time. Initial Sepsis Screen: Does the patient meet any 2 criteria? No. Patient's initial sepsis screen is negative. Does the patient have a suspected source of infection? No. Patient's initial sepsis screen is negative. Risk Assessment: Do you want to hurt yourself or someone else? Patient reports no desire to harm self or others. Onset of symptoms was March 22, 2022. 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 - Social history:: Smoking status: Patient denies any tobacco usage or history of. Screenin:44 [facility] ED Fall Risk Assessment (Adult) History of falling in the last 3 months, ap3 including since admission No falls in past 3 months (0 pts). Abuse screen: Denies threats or abuse. Nutritional screening: No deficits noted. Tuberculosis screening: No symptoms or risk factors identified. Assessment: 09:44 General: Appears uncomfortable, Behavior is calm. Pain: Complains of pain in pelvis and ap3 right hip and low back area Pain currently is 10 out of 10 on a pain scale. Neuro: Level of Consciousness is awake, alert, obeys commands, Oriented to person, place, time, situation. Cardiovascular: Patient's skin is warm and dry. Respiratory: Airway is patent Respiratory effort is even, unlabored, Respiratory pattern is regular, symmetrical. 11:18 Reassessment: Patient and/or family updated on plan of care and expected duration. Pain ap3 level reassessed. Patient is alert, oriented x 3, equal unlabored respirations, skin warm/dry/pink. Patient states symptoms have improved. 11:19 Pain: Pain. ap3 12:15 Pain: Pain currently is 6 out of 10 on a pain scale. ap3 Vital Signs: 09:12 BP 110 / 92; Pulse 112; Resp 16; Temp 98.2; Pulse Ox 99% on R/A; Weight 92.53 kg; iw Height 5 ft. 7 in. (170.18 cm); Pain 10/10; 10:16 BP 105 / 69; Pulse 98; Pulse Ox 96% on R/A; ap3 09:12 Body Mass Index 31.95 (92.53 kg, 170.18 cm) ED Course: 08:57 Patient arrived in ED. rg4 09:03 Odalis Monique PA is PHCP. en 09:03 Avel Coleman MD is Attending Physician. en 09:11 PHCP role handed off by Odalis Monique PA snw 09:11 Suzette Zapata FNP-C is PHCP. snw 09:14 Triage completed. iw 09:16 Arm band placed on. iw 09:19 Lizabeth Santana, RN is Primary Nurse. ap3 09:44 CT Stone Protocol In Process Unspecified. EDMS 09:44 Patient has correct armband on for positive identification. Placed in gown. Bed in low ap3 position. Call light in reach. Side rails up X2. Adult w/ patient. Pulse ox on. NIBP on. Door closed. Noise minimized. 09:44 No provider procedures requiring assistance completed. ap3 12:16 Patient did not have IV access during this emergency room visit. ap3 Administered Medications: 09:31 Drug: Valium (diazepam) 10 mg Route: PO; ap3 10:16 Follow up: Response: No adverse reaction; Pain is decreased ap3 09:31 Drug: Dilaudid (HYDROmorphone) 1 mg Route: IM; Site: right gluteus; ap3 10:15 Follow up: Response: No adverse reaction; Pain is decreased ap3 11:57 Drug: Augmentin (Amoxicillin-Clavulanate) 500 mg Route: PO; mb9 12:09 Follow up: Response: No adverse reaction mb9 Medication: 09:45 VIS not applicable for this client. ap3 Outcome: 11:49 Discharge ordered by . snw 12:15 Discharged to home ambulatory, with family. ap3 12:15 Condition: good 12:15 Discharge instructions given to patient, family, Instructed on discharge instructions, follow up and referral plans. medication usage, Demonstrated understanding of instructions, follow-up care, medications, Prescriptions given X 3. 12:18 Patient left the ED. ap3 Signatures: Dispatcher [employer] EDMS Suzette Zapata, ELECTRIC DEICER INSPECTOR-C ELECTRIC DEICER INSPECTOR-Csnw Mary Ann Klein RN RN iw Garcia, Rubi rg4 Lizabeth Santana RN RN ap3 Odalis Monique PA PA en Breneman, Mary Beth, RN RN mb9 Corrections: (The following items were deleted from the chart) 09:16 09:14 PMHx: diabetes mellitus; iw iw 09:16 09:14 PMHx: ibs; iw iw
[2022-03-25] MEDS ORDERED: AMOXICILLIN TRIHYDR 250 MG CAP ONE (11:58)
[2022-03-25 12:34] VITALS: TEMP 98.2
[2022-03-25 12:41] VITALS: BP 105/69; O2SAT 96
== END 2022-03-25 12:18 | disposition home or self-care (01) ==
LOC: ER 08:53
DX: N39.0 Urinary tract infection, site not specified (principal); M54.16 Radiculopathy, lumbar region; Z90.710 Acquired absence of both cervix and uterus; R73.03 Prediabetes
CPT/HCPCS: 87088; 87086; 76377; 74176; 96372; 99284; J1170; 81003; 81015